=== PATIENT | female | born 1990 | race African-American/Black ===

== ENCOUNTER 2021-04-29 14:40 | Emergency (ER) | payer SELFPAY ==
[~2021-04-29] VITALS: Ht 157.5 cm; Wt 63.0 kg
[2021-04-29] MEDS ORDERED: OLANZAPINE 10 MG VIAL IM ONE ×3 (14:58→15:30)
[2021-04-29] MEDS ORDERED: LORAZEPAM INJ 2 MG/ML VIAL ONE (15:20)
--- NOTE | 2021-04-29 16:05 | NUR ---
URINE COLLECTED AND SENT TO THE LAB
[2021-04-29 16:12] LABS: BILIRUBIN,URINE MODERATE (NEGATIVE); COLOR,URINE YELLOW (YELLOW); LEUKOCYTE ESTERASE ,URINE Negative (NEGATIVE); NITRITE, URINE Negative (NEGATIVE); PROTEIN,URINE 100 mg/dl (NEGATIVE); UGLUCOSE Negative (NEGATIVE); UROBILINOGEN,URINE 0.2 EU/dL (0.2)
[2021-04-29 16:23] LABS: BACTERIA,URINE Few /HPF (None Seen)
[2021-04-29 16:24] LABS: MUCUS,URINE Many /LPF (None Seen); URINE AMORPHOUS URATE Moderate /HPF (None Seen)
[2021-04-29 16:28] LABS: BASOPHILS # (AUTO) 0.1 K/uL (0.0-0.2); BASOPHILS % (AUTO) 0.5 % (0.0-2.0); EOSINOPHILS % (AUTO) 1.8 % (0.0-6.0); HEMATOCRIT 39 % (33-45); HEMOGLOBIN 13.1 g/dL (11.5-14.8); LYMPHOCYTES # (AUTO) 2.5 K/uL (0.8-4.8); LYMPHOCYTES % (AUTO) 24.4 % (20.0-44.0); MEAN CORPUSCULAR HGB CONC 34 g/dl (31.0-36.0); MEAN CORPUSCULAR VOLUME 88 fL (82-100); MONOCYTES # (AUTO) 0.8 K/uL (0.1-1.30); MONOCYTES % (AUTO) 7.9 % (2.0-12.0); NEUTROPHILS # (AUTO) 6.7 K/uL (1.8-8.9); NEUTROPHILS % (AUTO) 65.4 % (43.0-81.0); PLATELET COUNT (AUTO) 344 K/uL (150-450); RED BLOOD CELL COUNT(AUTO) 4.45 MIL/uL (4.0-5.2); WHITE BLOOD COUNT (AUTO) 10.3 K/uL (4.3-11.0)
[2021-04-29 16:37] LABS: CALCIUM, SERUM 8.9 mg/dL (8.5-10.1); CARBON DIOXIDE 26 mmol/L (21-32); CHLORIDE 107 mmol/L (98-107); CREATININE 0.9 mg/dL (0.6-1.3); GLUCOSE 86 mg/dL (74-106); POTASSIUM 3.5 mmol/L (3.5-5.1); SODIUM SERUM 144 mmol/L (136-145); UREA NITROGEN, BLOOD 19 mg/dL (7-18)
[2021-04-29 16:45] LABS: ALANINE AMINOTRANSFERASE 34 U/L (12-78); ALBUMIN 3.5 g/dL (3.4-5.0); ALKALINE PHOSPHATASE 78 U/L (46-116); ASPARTATE AMINOTRANSFERASE 23 U/L (15-37); BILIRUBIN,DIRECT 0.1 mg/dL (0.0-0.2); BILIRUBIN,TOTAL 0.4 mg/dL (0.2-1.0); TOTAL PROTEIN, SERUM 7.4 g/dL (6.4-8.2)
[2021-04-29 16:46] LABS: ACETAMINOPHEN < 2 ug/ml (10-30); ALCOHOL, BLOOD < 3 mg/dL (0-0)
--- NOTE | 2021-04-29 19:05 | NUR ---
PT BIBRA C/O ERRATIC BEHAVIOR AND RUNNING NAKED IN THE STREETS. UPON ASSUMING CARE, PT SLEEPING, BUT EASILY AROUSABLE, BUT NOT WANTING TO ANSWER QUESTIONS. PT ATTACHED TO MONITOR AND POX. VSS. PT GIVEN BLANKET AND CALL LIGHT WITHIN REACH.
--- NOTE | 2021-04-29 20:05 | NUR ---
PT SLEEPING, EASILY AROUSABLE. VSS
--- NOTE | 2021-04-29 21:05 | NUR ---
PT SLEEPING, ATTACHED TO MONITOR AND POX. VSS
--- NOTE | 2021-04-29 22:18 | NUR ---
Patient is resting comfortably in bed with eyes closed. Easily aroused. VSS
--- NOTE | 2021-04-29 22:31 | NUR ---
pt is awake. pt verbalized that she is feeling better adn just needed the rest. pt is ambulatory on steady gait, went to the bathroom. pt provided with a meal. pt denied and suicidal nor homicidal ideation.
--- NOTE | 2021-04-29 22:36 | NUR ---
Patient discharged to home in stable condition. Written and verbal after care instructions given. Patient verbalizes understanding of instruction.
[2021-04-29 22:56] VITALS: BP 118/69
== END 2021-04-29 22:40 | disposition home or self-care (01) ==
LOC: EDBD 14:45 → ER 14:45
DX: T43.621A Poisoning by amphetamines, accidental (unintentional), initial encounter (principal); R46.1 Bizarre personal appearance; Z59.00 Homelessness unspecified; Y92.89 Other specified places as the place of occurrence of the external cause
CPT/HCPCS: 36415; 80048; 80076; 80143; 80307; 80320; 81001; 84703; 85025; 96372; 99285; J2060; J3490; G0480